=== PATIENT | male | born 1960 | race Caucasian/White ===

== ENCOUNTER → 2016-11-29 | Outpatient (CLI) | payer BC | LOC: LAB 11:50 | DX: Z79.01 Long term (current) use of anticoagulants (principal); Z51.81 Encounter for therapeutic drug level monitoring ==

== ENCOUNTER → 2017-07-11 | Outpatient (CLI) | payer BC | LOC: LAB 10:21 | DX: Z79.01 Long term (current) use of anticoagulants (principal); Z51.81 Encounter for therapeutic drug level monitoring ==

== ENCOUNTER → 2017-08-14 | Outpatient (CLI) | payer BC | LOC: LAB 11:28 | DX: Z79.01 Long term (current) use of anticoagulants (principal) ==

== ENCOUNTER → 2017-08-29 | Outpatient (CLI) | payer BC | LOC: LAB 11:00 | DX: Z79.01 Long term (current) use of anticoagulants (principal); Z51.81 Encounter for therapeutic drug level monitoring ==

== ENCOUNTER → 2017-09-19 | Outpatient (CLI) | payer BC | LOC: LAB 09:25 | DX: Z79.01 Long term (current) use of anticoagulants (principal); Z51.81 Encounter for therapeutic drug level monitoring ==